=== PATIENT | female | born 1990 | race Caucasian/White ===

== ENCOUNTER 2017-09-19 18:42 | Emergency (ER) | payer OTHER ==
[2017-09-19] MEDS ORDERED: DEXAMETHASONE SOD PHOSPHATE 10MG/ML 1ML VIAL ONE (20:02)
[2017-09-19] MEDS ORDERED: MECLIZINE HCL 25 MG TABLET ONE (20:02)
== END 2017-09-19 20:44 | disposition home or self-care (01) ==
LOC: EDH 18:42
DX: H65.91 Unspecified nonsuppurative otitis media, right ear (principal); R42 Dizziness and giddiness; I10 Essential (primary) hypertension
CPT/HCPCS: 96372; 99283; J1100

== ENCOUNTER 2022-01-17 21:12 | Emergency (ER) | payer OTHER ==
[~2022-01-17] VITALS: Ht 162.6 cm; Wt 117.9 kg
[2022-01-17 21:14] VITALS: BP 125/84
== END 2022-01-17 21:49 | disposition home or self-care (01) ==
LOC: EDH 21:12
DX: R19.7 Diarrhea, unspecified (principal); Z98.890 Other specified postprocedural states